=== PATIENT | female | born 1945 | race Caucasian/White ===

== ENCOUNTER 2016-04-25 05:46 | Emergency (ER) | payer MEDICARE, OTHER ==
[2016-04-25 06:23] LABS: BASOPHIL 0.4 % (0-2); EOSINOPHIL 5.6 % (0-7); HCT 36.9 % (37.0-47.0); HGB 12.5 g/dl (12.5-16.0); LYMPHOCYTE 27.6 % (15-48); MCH 29.9 pg (25.0-31.0); MCHC 33.9 g/dL (32.0-36.0); MCV 88.3 fL (78.0-100.0); MONOCYTE 8.3 % (0-12); NEUTROPHIL 58.1 % (41-80); PLT 147 K/uL (150-400); RBC 4.18 M/uL (4.20-5.40); RDW 13.2 % (11.5-14.0); WBC 7.2 K/uL (4.0-10.5)
[2016-04-25 06:40] LABS: ALBUMIN 4.5 g/dL (3.4-4.8); BILIRUBIN - TOTAL 0.4 mg/dL (0.1-1.0); CREATININE 0.8 mg/dL (0.5-1.0); GLOBULIN (CALCULATION) 2.4 g/dL (2.2-4.2); POTASSIUM 3.6 mmol/L (3.5-5.1); TOTAL PROTEIN 6.9 g/dL (6.4-8.3)
[2016-04-25 06:46] LABS: CKMB 1.48 ng/mL (0.97-4.94); TROPONIN T < 0.010 ng/mL
== END 2016-04-25 09:12 | disposition home or self-care (01) ==
LOC: FER 05:46
PROVIDERS: Emergency Medicine Emergency Medical Services
DX: M54.12 Radiculopathy, cervical region (principal); E86.9 Volume depletion, unspecified; I25.2 Old myocardial infarction; F31.9 Bipolar disorder, unspecified; E78.5 Hyperlipidemia, unspecified; Z91.013 Allergy to seafood; Z98.890 Other specified postprocedural states; Z90.49 Acquired absence of other specified parts of digestive tract; Z79.899 Other long term (current) drug therapy
CPT/HCPCS: 36415; 71010; 80053; 82550; 82553; 84484; 85025; 93005; J2270; J2405

== ENCOUNTER 2020-04-07 16:10 | Inpatient (IN) | payer MEDICARE, OTHER ==
[~2020-04-07 16:10] MED LIST: 3IN1 COMMODE XX; ALDACTONE50 MG PO; ARICEPT 5MG TABL5 MG PO; ASPIRIN EC81 MG PO; BENTYL10 MG PO; CARAFATE1 GM PO; CEFDINIR300 MG PO; CIPRO500 MG PO; CLARITIN10 MG PO; CYTOMEL25 MCG PO; DYRENIUM50 MG PO; ERTAPENEM1 GM IV; HYDROCODON-ACE1 EAC2 PO; HYDROCODON-ACE1 EAC4 PO; KLOR-CON 1010 MEQ PO; KLOR-CON M 1010 MEQ PO; LEVAQUIN500 MG PO; LEVOXYL100 MCG PO; LIOTHYRONINE S50 MCG PO; MEDROL 4MG DOSEP4 MG PO; METRONIDAZOLE500 MG PO; MIRAPEX0.5 MG PO; NAPROSYN500 MG PO; NORCO 5-325 TA1 EACH PO; OMEPRAZOLE40 MG PO; ONDANSETRON ODT4 MG SL; PERCOCET 5-3251 EACH PO; PRILOSEC20 MG PO; PROZAC20 MG PO; SEROQUEL 25MG T25 MG PO; SYNTHROID112 MCG PO; TRAMADOL HCL50 MG PO; TRIAMTERENE-HC1 EAC3 PO; TRILEPTAL150 MG PO; VITAMIN B-121000 MC1 PO; VITAMIN D31000 UNIT PO; ZOCOR40 MG PO
[2020-04-07 17:06] LABS: BASOPHIL 0.2 % (0-2); EOSINOPHIL 0.3 % (0-7); HCT 34.7 % (37.0-47.0); HGB 11.3 g/dl (12.5-16.0); LYMPHOCYTE 7.7 % (15-48); MCH 29.2 pg (25.0-31.0); MCHC 32.6 g/dL (32.0-36.0); MCV 89.7 fL (78.0-100.0); MONOCYTE 8.5 % (0-12); MPV 12.2 fL (6.0-9.5); NEUTROPHIL 82.9 % (41-80); NRBC 0; PLT 132 K/uL (150-400); RBC 3.87 M/uL (4.20-5.40); RDW 12.7 % (11.5-14.0); WBC 10.2 K/uL (4.0-10.5)
[2020-04-07 17:11] LABS: INR 1.23 (0.9-1.2); PROTHROMBIN TIME 14.7 SECONDS (11.4-13.6)
[2020-04-07 17:23] LABS: ALBUMIN 3.6 g/dL (3.4-5.0); BILIRUBIN - TOTAL 0.4 mg/dL (0.2-1.0); BUN/CREAT RATIO (CALC) 18.2 RATIO; CREATININE 0.77 mg/dL (0.51-0.95); GLOBULIN (CALCULATION) 3.6 g/dL; POTASSIUM 4.2 mmol/L (3.5-5.1); TOTAL PROTEIN 7.2 g/dL (6.4-8.2)
[2020-04-07 17:24] LABS: BILIRUBIN NEGATIVE (NEGATIVE); BLOOD TRACE-LYSED Ery/uL (NEGATIVE); CLARITY CLOUDY (CLEAR); COLOR YELLOW (YELLOW); GLUCOSE (U) NORMAL (NORMAL); LEUKOCYTES 1+ Leu/uL (NEGATIVE); NITRITE POSITIVE (NEGATIVE); PROTEIN NEGATIVE (NEGATIVE); UROBILINOGEN 0.2 mg/dL (0.2-1.0)
[2020-04-07 17:26] LABS: LACTIC ACID 1.7 mmol/L (0.4-1.9)
[2020-04-07 17:28] LABS: BACTERIA 1+; SQUAMOUS EPITHELIAL CELLS RARE; URINARY WBC 20-50
[2020-04-07 17:46] LABS: CORONAVIRUS 2019 SARS-COV-2 NEGATIVE (NEGATIVE); INFLUENZA A NAA NEGATIVE (NEGATIVE)
[2020-04-07] MEDS ORDERED: VITAMIN D325 MC2 PO (21:06)
[2020-04-07] MEDS ORDERED: ASPIRIN EC81 M1 PO (21:06)
[2020-04-07] MEDS ORDERED: CLARITIN10 MG PO (21:07)
[2020-04-07] MEDS ORDERED: VITAMIN B-121000 MC1 PO (21:07)
[2020-04-07] MEDS ORDERED: NAMENDA 10MG TA10 MG PO (21:08)
[2020-04-07] MEDS ORDERED: ARICEPT 5MG TABL5 MG PO (21:08)
[2020-04-07] MEDS ORDERED: SYNTHROID112 MCG PO (21:08)
[2020-04-07] MEDS ORDERED: TRILEPTAL150 MG PO (21:09)
[2020-04-07] MEDS ORDERED: PRILOSEC20 MG PO (21:09)
[2020-04-07] MEDS ORDERED: SEROQUEL 25MG T25 MG PO (21:12)
[2020-04-07] MEDS ORDERED: CARAFATE1 GM PO (21:12)
[2020-04-07] MEDS ORDERED: ALDACTONE50 MG PO (21:12)
[2020-04-07] MEDS ORDERED: ZOCOR40 MG PO (21:12)
[2020-04-07] MEDS ORDERED: TRAMADOL HCL50 MG PO (21:13)
[2020-04-07] MEDS ORDERED: TRAZODONE HCL50 MG PO (21:15)
[2020-04-07] MEDS ORDERED: ZOLOFT50 MG PO (21:17)
[2020-04-07] MEDS ORDERED: KEFLEX250 MG PO (21:17)
[2020-04-07] MEDS ORDERED: FLUOXETINE HCL60 MG PO (21:18)
[2020-04-07] MEDS ORDERED: MIRAPEX0.25 MG PO (21:18)
[2020-04-07] MEDS ORDERED: AZO CRANBERRY1 EACH PO (21:18)
[2020-04-08 05:47] LABS: BASOPHIL 0.1 % (0-2); EOSINOPHIL 0.1 % (0-7); HCT 33.6 % (37.0-47.0); HGB 10.8 g/dl (12.5-16.0); LYMPHOCYTE 9.6 % (15-48); MCH 28.8 pg (25.0-31.0); MCHC 32.1 g/dL (32.0-36.0); MCV 89.6 fL (78.0-100.0); MONOCYTE 12.2 % (0-12); MPV 11.7 fL (6.0-9.5); NEUTROPHIL 77.5 % (41-80); NRBC 0; PLT 104 K/uL (150-400); RBC 3.75 M/uL (4.20-5.40); RDW 12.7 % (11.5-14.0); WBC 8.6 K/uL (4.0-10.5)
[2020-04-08 06:30] LABS: BUN/CREAT RATIO (CALC) 26.3 RATIO; CREATININE 0.76 mg/dL (0.51-0.95); POTASSIUM 3.7 mmol/L (3.5-5.1)
[2020-04-12 06:05] LABS: BASOPHIL 0.7 % (0-2); EOSINOPHIL 4.5 % (0-7); HCT 30.8 % (37.0-47.0); LYMPHOCYTE 28.9 % (15-48); MCH 28.9 pg (25.0-31.0); MCHC 32.5 g/dL (32.0-36.0); MONOCYTE 8.1 % (0-12); MPV 11.4 fL (6.0-9.5); NEUTROPHIL 57.1 % (41-80); NRBC 0; PLT 147 K/uL (150-400); RBC 3.46 M/uL (4.20-5.40); RDW 12.7 % (11.5-14.0); WBC 6.1 K/uL (4.0-10.5)
[2020-04-12 06:35] LABS: ALBUMIN 2.8 g/dL (3.4-5.0); BILIRUBIN - TOTAL 0.2 mg/dL (0.2-1.0); CREATININE 0.62 mg/dL (0.51-0.95); GLOBULIN (CALCULATION) 3.2 g/dL; POTASSIUM 3.2 mmol/L (3.5-5.1)
[2020-04-12] MEDS ORDERED: ZYVOX600 MG PO (15:23)
== END 2020-04-13 10:15 | disposition home health service (06) | DRG 689 ==
LOC: FER 16:10 → FTCU 18:29
PROVIDERS: Emergency Medicine; Nurse Practitioner; ADMIT Hospitalist
DX: N39.0 Urinary tract infection, site not specified (principal); G93.41 Metabolic encephalopathy; B95.2 Enterococcus as the cause of diseases classified elsewhere; G30.8 Other Alzheimer's disease; F02.80 Dementia in other diseases classified elsewhere, unspecified severity, without behavioral disturbance, psychotic disturbance, mood disturbance, and anxiety; Z20.822 Contact with and (suspected) exposure to COVID-19; G40.909 Epilepsy, unspecified, not intractable, without status epilepticus; E78.5 Hyperlipidemia, unspecified; I25.10 Atherosclerotic heart disease of native coronary artery without angina pectoris; E03.9 Hypothyroidism, unspecified; F31.9 Bipolar disorder, unspecified; I10 Essential (primary) hypertension; Z86.73 Personal history of transient ischemic attack (TIA), and cerebral infarction without residual deficits; Z90.710 Acquired absence of both cervix and uterus; Z90.49 Acquired absence of other specified parts of digestive tract; Z88.0 Allergy status to penicillin; I25.2 Old myocardial infarction; Z91.041 Radiographic dye allergy status; Z88.2 Allergy status to sulfonamides; Z79.82 Long term (current) use of aspirin; Z79.899 Other long term (current) drug therapy
CPT/HCPCS: 36415; 70450; 71250; 80048; 80053; 81001; 83605; 84443; 84484; 85025; 85610; 85730; 87040; 87076; 87088; 87186; 93005; 97116; 97162; 97166; 97530-GP; 97535; J0692; J0696; J1650; J1885; J2020; J7030; U0002

== ENCOUNTER 2020-04-24 21:29 | Inpatient (IN) | payer MEDICARE, OTHER ==
[~2020-04-24] VITALS: Ht 170.2 cm; Wt 71.3 kg
[~2020-04-24 21:29] MED LIST changes: +ASPIRIN EC81 M1 PO; +AZO CRANBERRY1 EACH PO; +FLUOXETINE HCL60 MG PO; +KEFLEX250 MG PO; +MIRAPEX0.25 MG PO; +NAMENDA 10MG TA10 MG PO; +TRAZODONE HCL50 MG PO; +VITAMIN D325 MC2 PO; +ZOLOFT50 MG PO; +ZYVOX600 MG PO
[2020-04-25] MEDS ORDERED: IBUPROFEN800 MG PO (00:40)
[2020-04-25 04:22] LABS: BASOPHIL 0.3 % (0-2); EOSINOPHIL 0.4 % (0-7); HCT 33.8 % (37.0-47.0); HGB 11.5 g/dl (12.5-16.0); LYMPHOCYTE 9.6 % (15-48); MCH 29.6 pg (25.0-31.0); MCV 87.1 fL (78.0-100.0); MONOCYTE 6.9 % (0-12); MPV 12.1 fL (6.0-9.5); NEUTROPHIL 82.3 % (41-80); NRBC 0; PLT 140 K/uL (150-400); RBC 3.88 M/uL (4.20-5.40); WBC 11.8 K/uL (4.0-10.5)
[2020-04-25 04:37] LABS: ALBUMIN 3.8 g/dL (3.4-5.0); BILIRUBIN - TOTAL 0.5 mg/dL (0.2-1.0); BUN/CREAT RATIO (CALC) 17.1 RATIO; CREATININE 0.7 mg/dL (0.51-0.95); GLOBULIN (CALCULATION) 3.5 g/dL; POTASSIUM 3.1 mmol/L (3.5-5.1); TOTAL PROTEIN 7.3 g/dL (6.4-8.2)
[2020-04-25] MEDS ORDERED: SEROQUEL 25MG T25 MG PO (05:04)
[2020-04-25] MEDS ORDERED: MIRAPEX0.25 MG PO (05:05)
[2020-04-25] MEDS ORDERED: SINGULAIR10 MG PO (05:06)
[2020-04-25] MEDS ORDERED: ZOLOFT50 MG PO (05:07)
[2020-04-25] MEDS ORDERED: TRAZODONE 50MG50 MG PO (05:08)
[2020-04-25] MEDS ORDERED: ULTRAM50 MG PO (05:09)
[2020-04-25] MEDS ORDERED: KEFLEX250 MG PO (05:10)
[2020-04-25] MEDS ORDERED: NAMENDA 10MG TA10 MG PO (05:10)
[2020-04-25] MEDS ORDERED: ALDACTONE50 MG PO (05:10)
[2020-04-25] MEDS ORDERED: SYNTHROID112 MCG PO (05:10)
[2020-04-25] MEDS ORDERED: B12 ACTIVE1000 MCG PO (05:11)
[2020-04-25] MEDS ORDERED: ASPIRIN EC81 MG PO (05:11)
[2020-04-25] MEDS ORDERED: CARAFATE1 GM PO (05:11)
[2020-04-25] MEDS ORDERED: ARICEPT 5MG TABL5 MG PO (05:12)
[2020-04-25] MEDS ORDERED: D3 + K2 DOTS 11 EACH PO (05:12)
[2020-04-25] MEDS ORDERED: TRILEPTAL150 MG PO ×2 (05:13→05:18)
[2020-04-25 18:40] LABS: BILIRUBIN NEGATIVE (NEGATIVE); BLOOD 1+ Ery/uL (NEGATIVE); CLARITY CLEAR (CLEAR); COLOR YELLOW (YELLOW); GLUCOSE (U) NORMAL (NORMAL); LEUKOCYTES 2+ Leu/uL (NEGATIVE); NITRITE NEGATIVE (NEGATIVE); PROTEIN 2+ mg/dL (NEGATIVE); SPECIFIC GRAVITY 1.025 (1.001-1.030); UROBILINOGEN 0.2 mg/dL (0.2-1.0)
[2020-04-25 18:50] LABS: URINARY WBC TNTC
[2020-04-25 18:51] LABS: AMORPHOUS URATES CRYSTALS TRACE; BACTERIA 1+; SQUAMOUS EPITHELIAL CELLS RARE; URINARY RBC RARE
[2020-04-26 07:50] LABS: ALBUMIN 3.1 g/dL (3.4-5.0); BILIRUBIN - TOTAL 0.5 mg/dL (0.2-1.0); BUN/CREAT RATIO (CALC) 22.6 RATIO; CREATININE 0.62 mg/dL (0.51-0.95); GLOBULIN (CALCULATION) 3.4 g/dL; POTASSIUM 3.5 mmol/L (3.5-5.1); TOTAL PROTEIN 6.5 g/dL (6.4-8.2)
[2020-04-26 07:54] LABS: BASOPHIL 0.3 % (0-2); HGB 9.9 g/dl (12.5-16.0); LYMPHOCYTE 14.5 % (15-48); MCH 29.2 pg (25.0-31.0); MCHC 34.1 g/dL (32.0-36.0); MCV 85.5 fL (78.0-100.0); MONOCYTE 11.8 % (0-12); NEUTROPHIL 71.9 % (41-80); NRBC 0; RBC 3.39 M/uL (4.20-5.40); RDW 13.2 % (11.5-14.0); WBC 7.8 K/uL (4.0-10.5)
[2020-04-26 08:15] LABS: PLT 77 K/uL (150-400)
--- NOTE | 2020-04-26 08:47 | NUR ---
NURSE AND DIGITAL COMMENTATOR OFFERED TO ASSIST WITH BREAKFAST, PATIENT REFUSED TO EAT. PATIENT DID DRINK HALF GLASS OF WATER
--- NOTE | 2020-04-26 14:04 | NUR ---
04/26/20 Ms. Ferrer lives at home with her spouse. A nephew lives in the home, although he is not in the home on weekends. [facility] [facility] is current. She has a rw, wc, 3in1, and s. chair. The family is in the process of arranging for sitter services. They were educated to [facility] in addition to the agencies / persons they have already been in contact. - The family is in the process of deciding on returning home with HH vs Hospice services.
[2020-04-26 15:06] LABS: FOLIC ACID (SERUM) 6.3 ng/mL (8.6-58.9)
[2020-04-27 06:04] LABS: BASOPHIL 0.4 % (0-2); EOSINOPHIL 2.7 % (0-7); HCT 27.7 % (37.0-47.0); HGB 9.4 g/dl (12.5-16.0); LYMPHOCYTE 27.1 % (15-48); MCH 29.3 pg (25.0-31.0); MCHC 33.9 g/dL (32.0-36.0); MCV 86.3 fL (78.0-100.0); MONOCYTE 13.9 % (0-12); MPV 12.2 fL (6.0-9.5); NEUTROPHIL 55.3 % (41-80); NRBC 0; RBC 3.21 M/uL (4.20-5.40); RDW 13.1 % (11.5-14.0); WBC 6.7 K/uL (4.0-10.5)
[2020-04-27 06:08] LABS: PLT 100 K/uL (150-400)
[2020-04-27 06:22] LABS: BUN/CREAT RATIO (CALC) 21.9 RATIO; CREATININE 0.64 mg/dL (0.51-0.95); MAGNESIUM 1.5 mg/dL (1.8-2.4); POTASSIUM 2.9 mmol/L (3.5-5.1)
[2020-04-27 06:27] LABS: IRON % SATURATION 5.3 %SAT (20-50)
--- NOTE | 2020-04-27 13:47 | NUR ---
04/27/20 Discharge is anticipated for 04/28. Family has decided to return home with Hospice services; Hospice has accepted. Family wishes for patient to be transported home via EMS. They are willing to sign the EMS ABN form. - A report was given to MS MOUSTAPHA Serrano. and Dr. Bianchi.
[2020-04-28 08:22] LABS: BUN/CREAT RATIO (CALC) 25.9 RATIO; CREATININE 0.54 mg/dL (0.51-0.95); POTASSIUM 3.7 mmol/L (3.5-5.1)
[2020-04-28] MEDS ORDERED: MIRALAX17 GM PO (10:26)
--- NOTE | 2020-04-28 14:49 | NUR ---
PT WILL BE GOING HOME WITH HOSPICE, IN ROOM, EMS CALLED AT THIS TIME. IV REMOVED DSG APPLIED.
--- NOTE | 2020-04-28 15:59 | NUR ---
EMS HERE TO PICK PT UP TO TAKE HOME, FAMILY WITH PT, CALLED HOSPICE TO LET THEM KNOW PT ON HER WAY HOME TALKED TO SRIN[facility].
== END 2020-04-28 16:00 | disposition hospice, home (50) | DRG 689 ==
LOC: FER 21:29 → FMS 04-25 01:33
PROVIDERS: Internal Medicine; Nurse Practitioner; ADMIT Allergy & Immunology Allergy
DX: N30.00 Acute cystitis without hematuria (principal); G92 Toxic encephalopathy; G45.9 Transient cerebral ischemic attack, unspecified; F01.50 Vascular dementia, unspecified severity, without behavioral disturbance, psychotic disturbance, mood disturbance, and anxiety; I95.9 Hypotension, unspecified; M54.2 Cervicalgia; R53.1 Weakness; R62.7 Adult failure to thrive; B96.89 Other specified bacterial agents as the cause of diseases classified elsewhere; G30.9 Alzheimer's disease, unspecified; Z51.5 Encounter for palliative care; I25.10 Atherosclerotic heart disease of native coronary artery without angina pectoris; E03.9 Hypothyroidism, unspecified; G40.909 Epilepsy, unspecified, not intractable, without status epilepticus; E53.9 Vitamin B deficiency, unspecified; J30.9 Allergic rhinitis, unspecified; E55.9 Vitamin D deficiency, unspecified; F31.9 Bipolar disorder, unspecified; F02.80 Dementia in other diseases classified elsewhere, unspecified severity, without behavioral disturbance, psychotic disturbance, mood disturbance, and anxiety; Z66 Do not resuscitate; E78.5 Hyperlipidemia, unspecified; Z90.49 Acquired absence of other specified parts of digestive tract; R41.82 Altered mental status, unspecified; Z79.899 Other long term (current) drug therapy; Z79.82 Long term (current) use of aspirin; Z86.73 Personal history of transient ischemic attack (TIA), and cerebral infarction without residual deficits; Z90.710 Acquired absence of both cervix and uterus; Z80.9 Family history of malignant neoplasm, unspecified; Z82.5 Family history of asthma and other chronic lower respiratory diseases; Z88.7 Allergy status to serum and vaccine; Z91.041 Radiographic dye allergy status; Z88.0 Allergy status to penicillin; Z91.013 Allergy to seafood
CPT/HCPCS: 36415; 71045; 72125; 73502; 80048; 80053; 81001; 82607; 82746; 83540; 83550; 83735; 85025; 87076; 87088; 87186; 97163; 97166; 97530; 97530-GP; 97535; G0378; J0878; J1335; J3475